=== PATIENT | female | born 1990 | race African-American/Black ===

== ENCOUNTER 2019-03-19 09:39 | Emergency (ER) | payer MEDICAID ==
[~2019-03-19] VITALS: Ht 170.2 cm; Wt 50.0 kg
[2019-03-19] MEDS ORDERED: LIDOCAINE HCL 1% 20ML VIAL (Pyxis) INJ INFIL ONE (10:15)
[2019-03-19] MEDS ORDERED: HYDROCODONE/ACETAMINOPHEN 5/325MG TABLET PO ONE (10:15)
[2019-03-19] MEDS ORDERED: LIDOCAINE HCL 4% CREAM 76GM TUBE TP ONE (10:15)
[2019-03-19] MEDS ORDERED: LORAZEPAM 1MG TABLET PO ONE (11:00)
[2019-03-19 12:22] VITALS: BP 128/88
== END 2019-03-19 12:25 | disposition home or self-care (01) ==
LOC: ER 09:39
DX: N75.0 Cyst of Bartholin's gland (principal); F17.210 Nicotine dependence, cigarettes, uncomplicated
CPT/HCPCS: 10060; 99283; J3490; Z7610

== ENCOUNTER 2020-03-24 19:57 | Emergency (ER) | payer MEDICAID ==
[~2020-03-24] VITALS: Ht 170.2 cm; Wt 49.8 kg
[2020-03-24] MEDS ORDERED: ONDANSETRON 4MG ODT PO ONE (22:30)
[2020-03-24] MEDS: LIDOCAINE HCL/EPINEPHRINE 1%-EPI 1:100,000 20 ML VIAL INFIL ONE ×2 (22:30→23:20)
[2020-03-24] MEDS ORDERED: MORPHINE SULFATE 10 MG/ML CPJ IM ONE (22:30)
[2020-03-24] MEDS ORDERED: LIDOCAINE HCL 4% CREAM 76GM TUBE TP ONE (23:45)
[2020-03-25] VITALS: BP 116/68
== END 2020-03-25 00:48 | disposition home or self-care (01) ==
LOC: ER 19:57
DX: R10.2 Pelvic and perineal pain (principal)
CPT/HCPCS: 56420; 96372; 99284; J2270; J3490; Q0162; Z7610; 99283